=== PATIENT | male | born 1985 | race Caucasian/White ===

== ENCOUNTER → 2017-11-13 | Outpatient (CLI) | payer BC ==
[~2017-11-13] MED LIST: IBUP200C71 PO; IBUP800T37 PO; MECL-81 PO; MELA10TA3
== END ==
LOC: LAB 17:39
PROVIDERS: ATTEND Urology
DX: M54.5 Low back pain (principal); R10.2 Pelvic and perineal pain; R35.0 Frequency of micturition
CPT/HCPCS: 87088

== ENCOUNTER → 2017-11-20 | Outpatient (CLI) | payer BC ==
[~2017-11-20] MED LIST changes: +IOPAMIDOL 76% 50 ML INFUS BTL 50 ML ONE; +IOPAMIDOL 76% 75 ML INFUS BTL 75 ML ONE; +NS 0.9% 20 ML SDV 40 ML ONE
--- NOTE | 2017-11-20 09:27 | RADIOLOGY IMAGING REPORT ---
FACILITY: [facility] [place] PATIENT NAME: Damir Bolivar : 1985 MR: [id number] V: [id number] EXAM DATE: ORDERING PHYSICIAN: RENÉE JUDD TECHNOLOGIST: Location: [facility] Patient: Damir Bolivar : 1985 Visit/Account:[id number] Date of Sevice: 11/20/2017 ABDOMEN/PELVIS W/WO CONTRAST HISTORY: Right flank pain, pelvic pain and urinary frequency TECHNIQUE: Axial images acquired through the abdomen/pelvis both with and without IV contrast.. Tj nal and sagittal reformatting also performed. Dose Lowering Technique One of the following dose optimization techniques was utilized in the performance of this exam: Autom ated exposure control; adjustment of the mA and/or kV according to the patient's size; or use of an i terative reconstruction technique. Specific details can be referenced in the facility's radiology C T exam operational policy. CONTRAST: 125 mL Isovue-370 COMPARISON: None. FINDINGS: Visualized lung bases: Negative. Hepatobiliary: Negative. Spleen: Negative. Adrenals: Negative. Pancreas: Negative. Kidneys ureters and bladder: There is a small subcentimeter round hypodensity lower pole of the right kidney which may represent a cyst although is too small to characterize Genitalia: Negative. GI: There is very mild diverticulosis of the left-sided colon no CT evidence of acute diverticulitis Vessels/spaces/nodes: There are multiple small shotty retroperitoneal lymph nodes Bones/soft tissues: There is an umbilical hernia containing fat Additional findings: None pertinent. IMPRESSION: Very mild diverticulosis left-sided colon although no CT evidence of acute diverticulitis Multiple shotty retroperitoneal lymph nodes Umbilical hernia containing fat No demonstration of urolithiasis, hydronephrosis or hydroureter Report Dictated By: Claudia Michele MD at 11/20/2017 9:13 AM Report E-Signed By: Claudia Michele MD at 11/20/2017 9:22 AM WSN:[id number]
== END ==
LOC: CT 01:42
PROVIDERS: ATTEND Urology
DX: K57.30 Diverticulosis of large intestine without perforation or abscess without bleeding (principal); K42.9 Umbilical hernia without obstruction or gangrene
CPT/HCPCS: 74178; J7050; Q9967

== ENCOUNTER 2017-12-06 01:23 | Day surgery (SDC) | payer BC ==
[2017-12-03 14:43] LABS: PLATELET COUNT, AUTOMATED 190 K/uL (150-450)
--- NOTE | 2017-12-05 20:25 | HISTORY AND PHYSICAL ---
DATE OF ADMISSION: December 06, 2017 CHIEF COMPLAINT Urinary frequency with pelvic pain. HISTORY OF PRESENT ILLNESS Patient is a 32-year-old white male who has been seen in the [facility] for the past several months with ongoing pain, dysuria and urinary frequency. He has been treated empirically with Cipro, Flagyl, doxycycline and Rocephin without any significant improvement in his symptoms. He was seen in the Urology Clinic on November 13, at which time his urinalysis was normal. A VB3 urine was obtained, which subsequently grew out less than 10,000 colonies of multiple types, consistent with a contamination. A CT urogram was performed which showed a prompt bilateral function. There was no evidence of prostatic lesions or cysts. His kidneys were normal without evidence of stones or hydronephrosis, and two small renal cysts. His physical exam was normal, except for a borderline meatal opening. He is now being brought to the operating room for planned anesthetic cystoscopy, possible urethral dilation and exam under anesthesia. PAST MEDICAL HISTORY As per HPI. PAST SURGICAL HISTORY Tonsillectomy. ALLERGIES No known drug allergies. CURRENT MEDICATIONS None. SOCIAL HISTORY Patient is employed by the [employer]. He is . He denies tobacco or illicit drug use. FAMILY HISTORY Noncontributory. REVIEW OF SYSTEMS Patient denies shortness of breath, nausea, vomiting, fever, chills, gross hematuria, chest pain, productive cough, liver disease, chronic headaches or bleeding disorder. PHYSICAL EXAMINATION GENERAL: Patient is a well-developed, well-nourished white male in no acute distress. HEENT: Normocephalic, atraumatic. CHEST: Clear to auscultation bilaterally. CARDIOVASCULAR: Regular rate and rhythm. ABDOMEN: Soft, nontender. No masses are palpated. GENITOURINARY: Exam is deferred to the OR. EXTREMITIES: Exam without clubbing, cyanosis or edema. NEUROLOGIC: Exam is nonfocal. IMPRESSION A 32-year-old white male with irritative voiding symptoms with urinary frequency with associated pelvic pain. He failed conservative management. He has had a normal CT urogram. On physical exam he does have a borderline sized meatus. PLAN We will perform anesthetic cystoscopy with possible urethral dilation, hydrodilation and exam under anesthesia. [facility]AMP[facility]havesh
[~2017-12-06] VITALS: Ht 180.3 cm; Wt 84.4 kg
[~2017-12-06 01:23] MED LIST changes: -IOPAMIDOL 76% 50 ML INFUS BTL 50 ML ONE; -IOPAMIDOL 76% 75 ML INFUS BTL 75 ML ONE; -NS 0.9% 20 ML SDV 40 ML ONE
[2017-12-06] MEDS: NORMOSOL R SOLN(*) 1000 ML BAG 1,000 ML IV PRN ×2 (06:13→08:30)
[2017-12-06] MEDS ORDERED: LIDOCAINE/SOD BICARB 8.4% SYR ONE (07:02)
[2017-12-06 07:03] VITALS: BP 145/103
[2017-12-06] MEDS ORDERED: PROPOFOL EMUL(*) 10MG/ML 20 ML 20 ML ONE (07:12)
[2017-12-06] MEDS ORDERED: LIDOCAINE MPF 1% 5 ML VIAL ONE (07:12)
[2017-12-06] MEDS ORDERED: METOCLOPRAMIDE 10 MG/2 ML SDV ONE (07:12)
[2017-12-06] MEDS ORDERED: DEXAMETHASONE SOD 4 MG/ML VIAL ONE (07:12)
[2017-12-06] MEDS ORDERED: ONDANSETRON 4 MG/2 ML VIAL ONE (07:12)
[2017-12-06] MEDS ORDERED: fentaNYL CITR 100 MCG/2 ML AMP ONE (07:15)
[2017-12-06] MEDS ORDERED: BELLADONNA ALK/OPIUM 60MG SUPP PR ONE (07:58)
[2017-12-06] MEDS ORDERED: HYDROCORTISONE 1% CR 28.35 GM TP ONE (07:58)
[2017-12-06] MEDS ORDERED: ceFAZolin(*) 1 GM VIAL 1 GM in NS(*) 0.9% 100 ML ADDVANT BAG 100 ML IV ONE (08:00)
[2017-12-06] MEDS ORDERED: MIDAZOLAM 2 MG/2 ML VIAL IVP ONE (08:00)
[2017-12-06] MEDS ORDERED: LIDOCAINE/SOD BICARB 8.4% SYR ID ONE (08:00)
[2017-12-06] MEDS ORDERED: FAMOTIDINE 20 MG TAB PO ONE (08:00)
[2017-12-06] MEDS ORDERED: KETOROLAC 30 MG/ML VIAL ONE (08:07)
[2017-12-06] MEDS ORDERED: DOCU-416 PO (08:38)
[2017-12-06] MEDS ORDERED: HYDR-4309 PO (08:38)
[2017-12-06] MEDS ORDERED: PHEN200T32 PO (08:39)
[2017-12-06] MEDS ORDERED: NEOM1PAC11 TP (08:39)
[2017-12-06] MEDS ORDERED: IBUP600T22 PO (08:40)
--- NOTE | 2017-12-06 15:16 | OPERATIVE REPORT 1 ---
EVENT DATE: December 06, 2017 SURGEON: Jamar Bergman MD ANESTHESIOLOGIST: Hector Membreno MD ANESTHESIA: General. PREOPERATIVE DIAGNOSIS Pelvic pain with urinary frequency. POSTOPERATIVE DIAGNOSIS Pelvic pain with urinary frequency. PROCEDURES PERFORMED 1. Distal urethral dilation to 28-Danish. 2. Anesthetic cystoscopy. 3. Measurement of bladder capacity under anesthesia. 4. Digital rectal exam and bimanual exam under anesthesia. ESTIMATED BLOOD LOSS Minimal. INTRAVENOUS FLUIDS Crystalloid. DRAINS None. COMPLICATIONS None. CONDITION The patient was taken to the recovery room awake and in stable condition. STATEMENT OF MEDICAL NECESSITY The patient is a 32-year-old white male with a prolonged history of pelvic pain with urinary frequency and occasional dysuria. He is now being brought to the operating room for planned anesthetic cystoscopy with exam under anesthesia. DESCRIPTION OF PROCEDURE PERFORMED The patient was brought to the operating room. After general anesthetic was obtained, he was placed in the dorsal lithotomy position and prepped and draped in the usual sterile manner. Physical exam revealed a moderately small meatus. The male sounds were used to calibrate the meatus. It was approximately 18- to 24-Danish in size. The meatus and distal urethra were then dilated to 20- Danish using the Prentiss sounds. Following this, anesthetic cystoscopy was performed with the 21-Danish rigid sheath and both the 30- and 70-degree lenses. He had a normal-appearing pendulous bulbar membranous and prostatic urethra. There was no evidence of stricture or lesions. His bladder neck was open. Upon entering his bladder, he had a smooth bladder mucosa. There were no tumors or other lesions. He had slit-like ureteral orifices, both effluxing clear urine. At this point, his bladder capacity was measured by instilling fluid into the bladder under gravity drainage at approximately 30 mL of water. The bladder was then drained, and his capacity was approximately 850 mL. He was again cystoscoped. There was no evidence of bladder injury or other lesions. There were no petechial lesions in the mucosa identified. At this point, the patient's bladder was drained through the cystoscopic sheath. A digital rectal exam was performed with a bimanual exam. There were no pelvic masses. His bladder was freely mobile in his pelvis. Digital rectal exam was normal. His prostate was approximately 20 g in size, normal consistency, and symmetrical. A B and O suppository was given per rectum. The patient was awakened in the operating room and taken to the recovery area in stable condition. PLAN The plan will be to allow the patient to be discharged home today on [place], Colace, Motrin, and Pyridium. He is also given a prescription for some triple antibiotic ointment to place at the meatus for the next several days. We will plan to see him in the Urology Clinic in six to eight weeks for followup exam and to be checked. BRYANT
== END 2017-12-06 09:15 | disposition home or self-care (01) ==
LOC: OR 01:23
PROVIDERS: ATTEND Urology
DX: R10.2 Pelvic and perineal pain (principal); R35.0 Frequency of micturition
CPT/HCPCS: 36415; 52281; 81001; 85025; 87088; C1758; J0690; J1100; J1885; J2001; J2405; J2704; J2765; J3010; J7050

== ENCOUNTER → 2018-01-10 | Outpatient (REF) ==
[~2018-01-10] MED LIST changes: +DOCU-416 PO; +HYDR-4309 PO; +IBUP600T22 PO; +NEOM1PAC11 TP; +PHEN200T32 PO
== END ==
LOC: AUD 09:34
PROVIDERS: ATTEND Internal Medicine
DX: Z01.10 Encounter for examination of ears and hearing without abnormal findings (principal)
CPT/HCPCS: 92552

== ENCOUNTER → 2019-01-07 | Outpatient (REF) ==
[~2019-01-07] MED LIST changes: -HYDR-4309 PO; +HYDR-653 PO; +IBUP-136 PO; -IBUP200C71 PO
== END ==
LOC: AUD 09:40
PROVIDERS: ATTEND Internal Medicine
DX: Z01.12 Encounter for hearing conservation and treatment (principal)
CPT/HCPCS: 92552